=== PATIENT | female | born 1985 | race Caucasian/White ===

== ENCOUNTER 2020-01-19 15:10 | Emergency (ER) | payer MEDICAID, OTHER ==
[~2020-01-19] VITALS: Ht 157.5 cm; Wt 68.0 kg
[2020-01-19 15:20] VITALS: BP 125/73
== END 2020-01-19 15:36 | disposition left against medical advice (07) ==
LOC: ER 15:10
DX: F41.9 Anxiety disorder, unspecified (principal)

== ENCOUNTER 2022-07-17 13:31 | Emergency (ER) | payer MEDICAID ==
[~2022-07-17] VITALS: Ht 157.5 cm; Wt 70.0 kg
[2022-07-17 14:49] VITALS: BP 106/69
[2022-07-17] MEDS ORDERED: IBUP800T27 PO (15:53)
== END 2022-07-17 15:59 | disposition home or self-care (01) ==
LOC: ER 13:31
DX: M24.812 Other specific joint derangements of left shoulder, not elsewhere classified (principal)
CPT/HCPCS: 73030